=== PATIENT | female | born 1970 | race Caucasian/White ===

== ENCOUNTER 2016-07-31 10:48 | Day surgery (SDC) | payer BC ==
--- NOTE | ~2016-07-31 | OP ---
Record Of Operation [facility] [address] [place]. [address] NAME: HADLEY FRANCIS : 70 STATUS : [facility]#: [id number] AGE: 46 ADM/REG DATE : 07/31/16 MR#: [id number] REPORT SERV DATE: 08/01/16 DICTATED BY: LAURO HARRIS DATE: 07/31/16 REPORT STATUS : Draft TRANSCRIBED BY: MODL DATE: 07/31/16 DATE OF PROCEDURE: PREOPERATIVE DIAGNOSIS: Chronic cholecystitis with cholelithiasis. POSTOPERATIVE DIAGNOSIS: Chronic cholecystitis with cholelithiasis. PROCEDURE: Laparoscopic cholecystectomy (2 site). SURGEON: Lauro Harris M.D. DESCRIPTION OF OPERATIVE PROCEDURE: The patient was brought to operating suite, placed in a supine position, she underwent satisfactory general endotracheal anesthesia without incident. The skin of the abdomen was next scrubbed, prepped, and draped in usual sterile fashion. 0.5% Marcaine with epinephrine was utilized as supplemental local anesthesia at all intended trocar sites. Initially, an infraumbilical incision was performed dissecting through the skin and subcutaneous tissue to the umbilical fascia. This was grasped with a Jenn clamp and elevated and disposable Veress insufflation needle was inserted through the umbilical fascia into the peritoneal cavity. Intraperitoneal tip location was next ascertained using the saline hanging drop method following which CO2 was insufflated for pressures of 15 mmHg throughout the case. After adequate insufflation pressure achieved, the Veress needle was removed, disposable bladed shielded 11 mm trocar was inserted through the umbilical fascia into the peritoneal cavity following which a rigid forward-viewing 10 mm laparoscope was inserted. Visualization of the intraabdominal parietes revealed no evidence of injury from initial insufflation or puncture. A cursory examination pelvis was normal. Attention was turned to the upper abdomen where an additional 5 mm trocar was placed to the right of falciform ligament and additional 5 mm grasping instrument was inserted through the umbilical fascia next to the umbilical trocar. The fundus and body of the gallbladder were grasped and elevated and dissection in the triangle of Calot was successful in identifying and skeletonizing the cystic duct and cystic duct common duct junction as well as the cystic artery. Both of these structures were controlled with multiple applications of the Weck 5 mm polymer clip system and divided. Then using spatula cautery dissection, the peritoneal attachments of the gallbladder and the liver were divided and the gallbladder was removed from the subhepatic space. Next, the camera switched to the 5 mm epigastric port and the gallbladder was grasped by its neck and withdrawn through the umbilical port. It was opened and found to contain a couple of small stones. CO2 was allowed to egress from the peritoneal cavity. No muscular bleeding was noted. The umbilicus was closed with [id number] suture of 0 Vicryl, subcutaneous tissue closure Record Of [id number] [place]. [address] NAME: HADLEY FRANCIS : 70 STATUS : [facility] PAT#: [id number] AGE: 46 ADM/REG DATE : 07/31/16 MR#: [id number] REPORT SERV DATE: 08/01/16 DICTATED BY: LAURO HARRIS DATE: 07/31/16 REPORT STATUS : Draft TRANSCRIBED BY: BOBBY DATE: 07/31/16 with interrupted 4-0 Vicryl running subcuticular stitch, 4-0 Vicryl for the skin. Dermabond skin adhesive was placed. The patient tolerated the procedure well and was returned to PACU in stable condition. At the termination of the procedure, sponge, needle, lap, and instrument counts were correct x3. ESTIMATED BLOOD LOSS: Less than 5 mL. SARA/BOBBY Lauro Harris M.D. / [id number] CC: Naila Lee M.D.
[~2016-07-31 10:48] MED LIST: AMB10 PO; B121000P IM; KLONO2 PO; PCET PO; PR25 PO; PRISTIQ50 MG PO; RITALIN20 PO; ULTRAM50 PO; ZONEGRAN PO
[2016-07-31 12:07] LABS: HEMATOCRIT 38.4 % (36.0-48.0); HEMOGLOBIN 12.9 g/dL (12.0-16.0)
== END 2016-07-31 17:21 | disposition home or self-care (01) ==
LOC: SDC 10:48
PROVIDERS: Specialist
PROC: 0FT44ZZ Resection of Gallbladder, Percutaneous Endoscopic Approach (ICD-10-PCS; principal; 2016-07-31 11:30)
DX: K80.20 Calculus of gallbladder without cholecystitis without obstruction (principal); K58.9 Irritable bowel syndrome, unspecified; D51.0 Vitamin B12 deficiency anemia due to intrinsic factor deficiency; F90.9 Attention-deficit hyperactivity disorder, unspecified type; F41.9 Anxiety disorder, unspecified; F32.9 Major depressive disorder, single episode, unspecified; N20.0 Calculus of kidney; Z88.1 Allergy status to other antibiotic agents; Z88.8 Allergy status to other drugs, medicaments and biological substances; Z90.710 Acquired absence of both cervix and uterus; Z79.899 Other long term (current) drug therapy; Z98.890 Other specified postprocedural states
CPT/HCPCS: 85014; 85018; 88304; A9270-GY; J0690; J1170; J1885; J2175; J2250; J2405; J2710; J3010